=== PATIENT | female | born 1985 | race Caucasian/White ===

== ENCOUNTER → 2018-03-05 | Outpatient (REF) ==
[~2018-03-05] MED LIST: NO ROUTINE MEDS; SUMA50TA34 PO
[2018-03-05 10:28] LABS: LDL CHOLESTEROL 55 mg/dl
== END ==
DX: Z02.9 Encounter for administrative examinations, unspecified (principal)

== ENCOUNTER → 2019-03-05 | Outpatient (REF) ==
[2019-03-05 12:40] LABS: LDL CHOLESTEROL 63 mg/dl
== END ==
DX: Z02.9 Encounter for administrative examinations, unspecified (principal)